=== PATIENT | female | born 1960 | race Caucasian/White ===

== ENCOUNTER 2022-07-11 19:02 | Observation (INO) | payer MEDICAID ==
[2022-07-11] MEDS ORDERED: APRESOLINE 20 MG/ML INJ IV ONE (19:38)
[2022-07-11] MEDS ORDERED: APRESOLINE 20 MG/ML INJ ONE (19:43)
--- NOTE | 2022-07-11 19:59 | ERPHSYRPT ---
- History of Present Illness Source: EMS Exam Limitations: clinical condition Patient Subjective Stated Complaint: Nsh Teacher from medic 1 stated "Her neighbor came over to check on her and found her on the floor naked. Her house was in very poor living condition. We gave her 4 mg narcan with no response, we tried an iv 2 times with no success. We did get a FSBS of 131. She is responsive to painful stimulus only. Her last known well or seen was sometime yesterday." Triage Nursing Assessment: Pt presented unresponsive with snoring respirations. PT would move legs and arms every now and then, pt would flinch slightly to painful stimulus. Pt skin was extremely dirty and pt has strong odor of urine and body odor. PT had no clothes on. Pt would not speak. Physician History: 62 yo WF found down in her home dishevelled for an undetermined time. Pt responds to pain only upon arrival and has a minimal gag reflex but maintaining an airway. She was markedly hypertensive upon arrival and presumed to have a possible CVA, so she was rushed to CT. Timing/Duration: other (Unknown) Character of Deficits: other (Pt responsive to pain only) Baseline/Normal Cognition: alert oriented x 3 Current Cognition: poor alertness Hx Tetanus, Diphtheria Vaccination/Date Given: (unknown) Hx Influenza Vaccination/Date Given: (unknown) Hx Pneumococcal Vaccination/Date Given: (unknown) Immunizations Up to Date: (unknown) Travel Risk - International Travel Have you traveled outside of the country in past 3 weeks: No - Coronavirus Screening Are you exhibiting any of the following symptoms?: No Close contact with a COVID-19 positive Pt in past 14-21 Days: No - Vaccine Status Have you recieved a Covid-19 vaccination: (unknown) - Review of Systems All Other Systems: Unable due to condition - Past Medical History Pertinent Past Medical History: (unknown) - Past Surgical History Past Surgical History: (unknown) - Social History Smoking Status: Never smoker Exposure to second hand smoke: (unknown) Patient Lives Alone: Yes - Nursing Vital Signs Nursing Vital Signs: Initial Vital Signs Temperature 98.1 F 07/11/22 19:02 Pulse Rate 65 07/11/22 19:02 Respiratory Rate 18 07/11/22 19:02 Blood Pressure 281/119 07/11/22 19:02 O2 Sat by Pulse Oximetry 98 07/11/22 19:02 Pain Scale Pain Intensity 0 Markedly hypertensive - [place] Coma Scale Best Eye Response ([place]): (2) open to pain Best Verbal Response ([place]): (1) no verbal response Best Motor Response ([place]): (4) withdraws to pain [place] Total: 7 - Physical Exam General Appearance: severe distress Eye Exam: bilateral eye: normal inspection, PERRL Ears, Nose, Throat Exam: dry mucous membranes Neck Exam: normal inspection Respiratory: normal breath sounds, lungs clear, airway intact Cardiovascular: regular rate/rhythm, capillary refill <2 sec, No murmur Gastrointestinal: soft, normal bowel sounds Back Exam: normal inspection, normal range of motion Extremity Exam: normal inspection, pelvis stable Peripheral Pulses: carotid (R): 2+, carotid (L): 2+ 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 Exam: PERRL, No facial asymmetry, No facial droop DTR: bicep (R): 2+, bicep (L): 2+ Skin Exam: warm, dry SpO2 Interpretation: normal SpO2: 98 O2 Delivery: Room Air - Course Nursing assessment & vital signs reviewed: Yes EKG Interpreted by Me: RATE (NSR/Rate 82/Prolonged QTc/LVH/Possible old inferior CT/Poor R wave progression) - CT Exams Head CT Interpretation: Discussed w/radiologist (Large intraparynchymal bleed read per ER physician before discussion w telerad/report), Tele-radiologist Report Ordered Tests: Active Orders 24 hr Category Date Time Status EKG-ER Only STAT Care 07/11/22 19:08 Completed HEAD WITHOUT CONTRAST [CT] Stat Exams 07/11/22 19:04 Completed CULTURE,URINE Stat Lab 07/11/22 19:49 Received UA W/RFX UR CULTURE Stat Lab 07/11/22 19:49 Completed Urine Triage Profile Stat Lab 07/11/22 19:49 Completed Medication Summary Generic Name Dose Route Start Last Admin Trade Name Freq PRN Reason Stop Dose Admin Sodium Chloride 1,000 mls @ 100 mls/hr 07/11/22 20:15 07/11/22 20:13 Sodium Chloride 0.9% 1000 Ml IV 08/10/22 20:14 100 mls/hr .Q10H AMY Administration Morphine Sulfate 2 mg 07/11/22 21:49 07/11/22 23:40 Morphine Sulfate 2 Mg/Ml Inj IV 07/16/22 21:48 2 mg Q2H PRN PRN Administration PAIN Discontinued Medications Generic Name Dose Route Start Last Admin Trade Name [place] PRN Reason Stop Dose Admin Hydralazine HCl 20 mg 07/11/22 19:38 07/11/22 19:44 Hydralazine Hcl 20 Mg/Ml Vial IV 07/11/22 19:39 20 mg STAT ONE Administration Hydralazine HCl Confirm 07/11/22 19:43 Hydralazine Hcl 20 Mg/Ml Vial Administered 07/11/22 19:44 Dose 20 mg .ROUTE .STK-MED ONE Lab/Rad Data: Laboratory Results 07/11/22 07/11/22 07/11/22 Range/Units 20:08 19:49 19:49 Urine Color Yellow (Yellow) Urine Appearance Cloudy A (Clear) Urine pH 5.5 (4.6-8.0) Ur Specific [place] 1.020 (1.005-1.030) Urine Protein >=1000 A (Negative) Urine Glucose (UA) Negative (Negative) mg/dL Urine Ketones 15 A (Negative) Urine Blood Moderate A (Negative) Urine Nitrite Negative (Negative) Urine Bilirubin Negative (Negative) Urine Urobilinogen 1.0 A (0.2) mg/dL Ur Leukocyte Esterase Trace A (Negative) U Hyaline Cast (Auto) None Seen (0-2) /LPF Urine Microscopic RBC 0-2 (0-5) /HPF Urine Microscopic WBC 3-5 (0-5) /HPF Ur Epithelial Cells Few (None Seen) /HPF Amorphous Crystals Moderate A (None Seen) /HPF Urine Bacteria Few A (None Seen) /HPF Urine Culture Reflexed ORDERED SEPARATELY (NO) Urine Opiates Level NEGATIVE (NEGATIVE) Ur Methadone NEGATIVE (NEGATIVE) Urine Barbiturates NEGATIVE (NEGATIVE) Ur Phencyclidine (PCP) NEGATIVE (NEGATIVE) Urine Amphetamine POSITIVE (NEGATIVE) U Benzodiazepine Level NEGATIVE (NEGATIVE) Urine Cocaine NEGATIVE (NEGATIVE) Urine Marijuana (THC) NEGATIVE (NEGATIVE) Influenza Type A Ag NEGATIVE (NEGATIVE) Influenza Type B Ag NEGATIVE (NEGATIVE) RSV (PCR) NEGATIVE (NEGATIVE) SARS-CoV-2 (PCR) NEGATIVE (NEGATIVE) - Progress Progress: unchanged Progress Note: 07/11/22 19:[address] Peterson Spoke w pt's only relative, sister, and related that pt marguerite wo intubation and neurosurgical treatment. Sister states that pt does not want any treatment and just wants nature to take its course. Sister repeated wishes to Gurvinder Pedersen RN. 07/11/22 21:08 Pt admitted for comfort measures only w expected demise due to large intraparynchymal brain bleed. GCS 7 upon admit. 07/11/22 21:11 Discussed with : Other Counseled pt/family regarding: diagnosis, rad results Medical Desision Making - Independent Historian Additional History obtained from: Nsh Teacher/EMT (Sister per phone) - Discussion of managment Care discussed with:: hospitalist Agreed on:: Treatment plan, decision to admit Will see patient: in hospital - Social Determinants of Health Limited access to: transportation - Diagnostic Testing Diagnostic test were ordered, analyzed, and reviewed by me: Yes Radiological Interpretation: Interpreted by me, Teleradiologist Report - Risk of complications The pt has a high risk of morbidity or mortality based on: Decision regarding hospitilization or escalation of hosp level of care, Decision not to resucitate - Departure Departure Disposition: In-patient Admission Clinical Impression: Intraparenchymal hemorrhage of brain Condition: Poor Critical Care Time: Yes Critical Care Time(excluding separately billable procedures): Critical 30-74 mins
[2022-07-11] MEDS ORDERED: Sodium Chloride 0.9% 1000 ML 1,000 ML ONE (20:10)
[2022-07-11] MEDS: Sodium Chloride 0.9% 1000 ML 1,000 ML IV SCH (20:13)
--- NOTE | 2022-07-11 20:14 | XRAY ---
CLINICAL HISTORY:Altered LOC. COMPARISON:None; TECHNIQUES:Axial non-contrast CT scan of the brain was performed from the skull base to the high parietal region. CTDI mGy, DLP mGycm. FINDINGS: Several intracranial hyperdense areas with peripheral hypodense areas, located in the right side at occipital lobe, and thalamic area, and on the left side on parietal and occipital lobes. These are compatible with acute intracranial hematomas and perilesional edema, and they are associated with secondary intraventricular hemorrhage on lateral ventricles bilaterally (markedly on the right side), third and fourth ventricles. Associated hemorrhage in basal cisterns. Subfalx midline deviation to the left ([address] appearance of the posterior fossa structures namely the cerebellar hemispheres. Limited view of brainstem and cerebellar peduncles due to motion artifacts. The IACs are unremarkable. No definite calvarium fractures. Scanned paranasal sinuses are clear. Inclusion of dental roots of dental prostheses in right maxillary sinus. IMPRESSION: 1. Bilateral intracranial intraaxial hematomas. 2. Hemorrhage in ventricular system and basal cisterns. 3. Limited view of brainstem and cerebellar peduncles. 4. Subfalx midline deviation to the left (10 mm). 5. Inclusion of dental roots in right maxillary sinus. 6. Lack of CSF space arount the brain consistant with subfalcine herniation. ER was called at 07:07 PM [employer] and results were verbally communicated with Dr. Richards. Electronically Signed by: Karina Wild MD. (07/11/2022 19:02:48 [employer] TE[employer])
[2022-07-11 20:35] LABS: Barbiturate,Urine NEGATIVE (NEGATIVE); Benzodiazepine,Urine NEGATIVE (NEGATIVE); Cocaine,Urine NEGATIVE (NEGATIVE); Methadone,Urine NEGATIVE (NEGATIVE); Opiate,Urine NEGATIVE (NEGATIVE); PCP,Urine NEGATIVE (NEGATIVE); THC,Urine NEGATIVE (NEGATIVE)
[2022-07-11 20:39] LABS: Appearance Cloudy (Clear); Bacteria Few /HPF (None Seen); Bilirubin Negative (Negative); Blood Moderate (Negative); Epithelial Cells Few /HPF (None Seen); Glucose, Urine Negative (Negative); Hyaline Casts None Seen /LPF (0-2); Ketones 15 (Negative); Leukocyte Esterase Trace (Negative); Nitrite Negative (Negative); Ph 5.5 (4.6-8.0); Protein,Urine Dip >=1000 (Negative); RBC 0-2 /HPF (0-5)
[2022-07-11 20:40] LABS: ADD URINE CULTURE? ORDERED SEPARATELY (NO); Amourphous Crystal Moderate /HPF (None Seen)
[2022-07-11 20:51] LABS: INFLUENZA A NEGATIVE (NEGATIVE); INFLUENZA B NEGATIVE (NEGATIVE); RESPIRATORY SYNCTIAL VIRUS NEGATIVE (NEGATIVE); SARS-CoV-2 Xpert Express NEGATIVE (NEGATIVE)
[2022-07-11 20:57] LABS: Amphetamine,Urine POSITIVE (NEGATIVE)
--- NOTE | 2022-07-11 21:55 | PCM.HP ---
History of Present Illness - Chief Complaint Chief Complaint: Intraparynchymal Brain Bleed Date: 07/11/22 History of Present Illness: 62 yo wf with no clear past medical hx presents with large ICH. Pt was markedly hypertensive on admit. Given hydralazine. Unable to protect airway--> MPOA called and stated to not intubate. Made DNAR and comfort care. I spoke to the MPOA. She knows the gravity of her situation and stated patient would not want any care. Pt UTOX + for amphetamines. Sister did not know she was currently using but stated she had used in past. - Review of Systems All Other Systems: Unable due to condition - Past Medical History Past Medical History: No (unknown) - Past Surgical History Past Surgical History: (unknown) - Social History Smoking Status: Never smoker Exposure to second hand smoke: (unknown) - Physical Exam Vital Signs: Vital Signs - 24 hr Temp Pulse Resp BP Pulse Ox 07/11/22 21:12 98 07/11/22 20:02 94 H 24 203/116 100 07/11/22 19:02 98.1 F 65 18 281/119 98 General Appearance: no apparent distress Neurologic Exam: other (comatose, withdraws to pain) Eye Exam: other (pupils 2 mm/ NR) Neck Exam: normal inspection Respiratory Exam: normal breath sounds Cardiovascular Exam: regular rate/rhythm Gastrointestinal/Abdomen Exam: soft, normal bowel sounds Extremity Exam: normal inspection, pedal edema Skin Exam: normal color Results - Labs Lab/Micro Results: Lab Results-Last 24 Hours 07/11/22 07/11/22 07/11/22 Range/Units 19:49 19:49 20:08 Urine Color Yellow (Yellow) Urine Appearance Cloudy A (Clear) Urine pH 5.5 (4.6-8.0) Ur Specific [place] 1.020 (1.005-1.030) Urine Protein >=1000 A (Negative) Urine Glucose (UA) Negative (Negative) mg/dL Urine Ketones 15 A (Negative) Urine Blood Moderate A (Negative) Urine Nitrite Negative (Negative) Urine Bilirubin Negative (Negative) Urine Urobilinogen 1.0 A (0.2) mg/dL Ur Leukocyte Esterase Trace A (Negative) U Hyaline Cast (Auto) None Seen (0-2) /LPF Urine Microscopic RBC 0-2 (0-5) /HPF Urine Microscopic WBC 3-5 (0-5) /HPF Ur Epithelial Cells Few (None Seen) /HPF Amorphous Crystals Moderate A (None Seen) /HPF Urine Bacteria Few A (None Seen) /HPF Urine Culture Reflexed ORDERED SEPARATELY (NO) Urine Opiates Level NEGATIVE (NEGATIVE) Ur Methadone NEGATIVE (NEGATIVE) Urine Barbiturates NEGATIVE (NEGATIVE) Ur Phencyclidine (PCP) NEGATIVE (NEGATIVE) Urine Amphetamine POSITIVE (NEGATIVE) U Benzodiazepine Level NEGATIVE (NEGATIVE) Urine Cocaine NEGATIVE (NEGATIVE) Urine Marijuana (THC) NEGATIVE (NEGATIVE) Influenza Type A Ag NEGATIVE (NEGATIVE) Influenza Type B Ag NEGATIVE (NEGATIVE) RSV (PCR) NEGATIVE (NEGATIVE) SARS-CoV-2 (PCR) NEGATIVE (NEGATIVE) - Radiology Impressions Radiology Exams & Impressions: Radiology Procedures Category Date Time Status HEAD WITHOUT CONTRAST [CT] Stat Exams 07/11/22 19:04 Completed Assessment/Plan (1) Intraparenchymal hemorrhage of brain Current Visit: Yes Status: Acute Assessment & Plan: A/P: ICH Subfalcine Herniation Hypertensive Emergency AMS Amphetamine + Catastrophic ICH with herniation. Comatose on exam. D/w Sister. She stated patient would not want additional care. She would want comfort care. Pt is DNAR. Continue morphine as needed for pain or air hunger. Mp Peterson MD entire encounter done via telemedicine Code(s): I61.9 - NONTRAUMATIC INTRACEREBRAL HEMORRHAGE, UNSPECIFIED Telemedicine Encounter - Telemedicine Encounter Telemedicine Encounter: The entirety of this encounter was performed via Telemedicine"
[2022-07-11] MEDS: MORPHINE SULFATE 2 MG INJ IV PRN (23:40)
[2022-07-12 04:35] VITALS: PULSE 70
[2022-07-12] MEDS: MORPHINE SULFATE 2 MG INJ IV PRN ×2 (06:29→11:18)
[2022-07-12] MEDS: Sodium Chloride 0.9% 1000 ML 1,000 ML IV SCH (07:48)
[2022-07-12 07:58] VITALS: BP 238/113; O2SAT 95
--- NOTE | 2022-07-12 08:59 | PCM.NOTE ---
Date and Time: 07/12/22 0854 Subjective Assessment: Patient is unresponsive. Patient is on comfort measures. Patient's sister who lives in [place] has confirmed with patient comfort measures. - Review of Systems All Other Systems: Unable due to condition Objective Exam General Appearance: moderate distress Neurologic Exam: other (unresponsive), No motor deficits Skin Exam: normal color, warm, dry Eye Exam: PERRL, EOMI Ears, Nose, Throat Exam: normal ENT inspection, pharynx normal, moist mucous membranes Neck Exam: normal inspection, non-tender, supple, full range of motion Respiratory Exam: normal breath sounds, lungs clear, No respiratory distress Cardiovascular Exam: regular rate/rhythm, normal heart sounds Gastrointestinal/Abdomen Exam: soft, No tenderness Extremity Exam: normal inspection Back Exam: normal inspection, No CVA tenderness, No vertebral tenderness Pelvic Exam: deferred Rectal Exam: deferred OBJECTIVE DATA Vital Signs: Vital Signs - 24 hr Temp Pulse Resp BP Pulse Ox 07/12/22 07:57 98.6 F 70 16 238/113 95 07/12/22 04:00 101.5 F 70 24 246/116 98 07/12/22 02:53 98 07/11/22 23:52 80 22 07/11/22 22:00 97.6 F 93 H 19 212/110 96 07/11/22 20:02 94 H 24 203/116 100 07/11/22 19:02 98.1 F 65 18 281/119 98 Pain Assessment - Last Documented Pain Intensity 0 Pain Scale Used 0-10 Pain Scale Intake and Output: Intake & Output 07/09/22 07/10/22 07/11/22 07/12/22 11:59 11:59 11:59 11:59 Weight 71.19 kg Lab Results: Lab Results-Last 24 Hours 07/11/22 07/11/22 07/11/22 Range/Units 19:49 19:49 20:08 Urine Color Yellow (Yellow) Urine Appearance Cloudy A (Clear) Urine pH 5.5 (4.6-8.0) Ur Specific [place] 1.020 (1.005-1.030) Urine Protein >=1000 A (Negative) Urine Glucose (UA) Negative (Negative) mg/dL Urine Ketones 15 A (Negative) Urine Blood Moderate A (Negative) Urine Nitrite Negative (Negative) Urine Bilirubin Negative (Negative) Urine Urobilinogen 1.0 A (0.2) mg/dL Ur Leukocyte Esterase Trace A (Negative) U Hyaline Cast (Auto) None Seen (0-2) /LPF Urine Microscopic RBC 0-2 (0-5) /HPF Urine Microscopic WBC 3-5 (0-5) /HPF Ur Epithelial Cells Few (None Seen) /HPF Amorphous Crystals Moderate A (None Seen) /HPF Urine Bacteria Few A (None Seen) /HPF Urine Culture Reflexed ORDERED SEPARATELY (NO) Urine Opiates Level NEGATIVE (NEGATIVE) Ur Methadone NEGATIVE (NEGATIVE) Urine Barbiturates NEGATIVE (NEGATIVE) Ur Phencyclidine (PCP) NEGATIVE (NEGATIVE) Urine Amphetamine POSITIVE (NEGATIVE) U Benzodiazepine Level NEGATIVE (NEGATIVE) Urine Cocaine NEGATIVE (NEGATIVE) Urine Marijuana (THC) NEGATIVE (NEGATIVE) Influenza Type A Ag NEGATIVE (NEGATIVE) Influenza Type B Ag NEGATIVE (NEGATIVE) RSV (PCR) NEGATIVE (NEGATIVE) SARS-CoV-2 (PCR) NEGATIVE (NEGATIVE) Radiology Exams: Radiology Procedures Category Date Time Status HEAD WITHOUT CONTRAST [CT] Stat Exams 07/11/22 19:[address]/HEAD WITHOUT CONTRAST CLINICAL HISTORY:Altered LOC. COMPARISON:None; TECHNIQUES:Axial non-contrast CT scan of the brain was performed from the skull base to the high parietal region. CTDI mGy, DLP mGycm. FINDINGS: Several intracranial hyperdense areas with peripheral hypodense areas, located in the right side at occipital lobe, and thalamic area, and on the left side on parietal and occipital lobes. These are compatible with acute intracranial hematomas and perilesional edema, and they are associated with secondary intraventricular hemorrhage on lateral ventricles bilaterally (markedly on the right side), third and fourth ventricles. Associated hemorrhage in basal cisterns. Subfalx midline deviation to the left ([address] appearance of the posterior fossa structures namely the cerebellar hemispheres. Limited view of brainstem and cerebellar peduncles due to motion artifacts. The IACs are unremarkable. No definite calvarium fractures. Scanned paranasal sinuses are clear. Inclusion of dental roots of dental prostheses in right maxillary sinus. IMPRESSION: 1. Bilateral intracranial intraaxial hematomas. 2. Hemorrhage in ventricular system and basal cisterns. 3. Limited view of brainstem and cerebellar peduncles. 4. Subfalx midline deviation to the left (10 mm). 5. Inclusion of dental roots in right maxillary sinus. 6. Lack of CSF space arount the brain consistant with subfalcine herniation. Assessment/Plan (1) Intraparenchymal hemorrhage of brain Current Visit: Yes Status: Acute Assessment & Plan: Chief Complaint Diagnosis Intraparynchymal Brain Bleed Admission Date Date 07/11/22 Vital Signs (Last 24 hours) Temp Pulse Resp BP Pulse Ox 07/12/22 07:57 98.6 F 70 16 238/113 95 07/12/22 04:00 101.5 F 70 24 246/116 98 07/12/22 02:53 98 07/11/22 23:52 80 22 07/11/22 22:00 97.6 F 93 H 19 212/110 96 07/11/22 20:02 94 H 24 203/116 100 07/11/22 19:02 98.1 F 65 18 281/119 98 Home Medications Medication Instructions Recorded Confirmed Last Taken Type No Reportable Medications [No 07/12/22 07/12/22 Unknown History Reported Medications] Current Medications Generic Name Dose Route Start Last Admin Trade Name Freq PRN Reason Stop Dose Admin Morphine Sulfate 2 mg 07/11/22 21:49 07/12/22 06:29 Morphine Sulfate 2 Mg/Ml Inj IV 07/16/22 21:48 2 mg Q2H PRN PRN Administration PAIN Discontinued Medications Generic Name Dose Route Start Last Admin Trade Name Freq PRN Reason Stop Dose Admin Hydralazine HCl 20 mg 07/11/22 19:38 07/11/22 19:44 Hydralazine Hcl 20 Mg/Ml Vial IV 07/11/22 19:39 20 mg STAT ONE Administration Hydralazine HCl Confirm 07/11/22 19:43 Hydralazine Hcl 20 Mg/Ml Vial Administered 07/11/22 19:44 Dose 20 mg .ROUTE .STK-MED ONE Sodium Chloride 1,000 mls @ 100 mls/hr 07/11/22 20:15 07/12/22 07:48 Sodium Chloride 0.9% 1000 Ml IV 08/10/22 20:14 Not Given .Q10H AMY Sodium Chloride Confirm 07/11/22 20:10 Sodium Chloride 0.9% 1000 Ml Administered 07/11/22 20:11 Dose 1,000 mls @ ud .ROUTE .STK-MED ONE Intake & Output (Last 24 hours) 07/09/22 07/10/22 07/11/22 07/12/22 11:59 11:59 11:59 11:59 Weight 71.19 kg Microbiology Results (Last 24 hours) 07/11/22 19:49 Catherized Urine Culture - Pending Laboratory Results (Last 24 hours) 07/11/22 07/11/22 07/11/22 20:08 19:49 19:49 Urine Color Yellow Urine Appearance Cloudy A Urine pH 5.5 Ur Specific [place] 1.020 Urine Protein >=1000 A Urine Glucose (UA) Negative Urine Ketones 15 A Urine Blood Moderate A Urine Nitrite Negative Urine Bilirubin Negative Urine Urobilinogen 1.0 A Ur Leukocyte Esterase Trace A U Hyaline Cast (Auto) None Seen Urine Microscopic RBC 0-2 Urine Microscopic WBC 3-5 Ur Epithelial Cells Few Amorphous Crystals Moderate A Urine Bacteria Few A Urine Culture Reflexed ORDERED SEPARATELY Urine Opiates Level NEGATIVE Ur Methadone NEGATIVE Urine Barbiturates NEGATIVE Ur Phencyclidine (PCP) NEGATIVE Urine Amphetamine POSITIVE U Benzodiazepine Level NEGATIVE Urine Cocaine NEGATIVE Urine Marijuana (THC) NEGATIVE Influenza Type A Ag NEGATIVE Influenza Type B Ag NEGATIVE RSV (PCR) NEGATIVE SARS-CoV-2 (PCR) NEGATIVE Orders (Last 24 hours) Category Date Time Status Admit as Inpatient ROUTINE Care 07/11/22 20:00 Active Code Status Order ROUTINE Care 07/11/22 20:00 Active EKG-ER Only STAT Care 07/11/22 19:08 Completed IV Care Q6H Care 07/11/22 20:00 Completed Literacy Tutor/Discharge Plan ROUTINE Cons 07/12/22 01:25 Active HEAD WITHOUT CONTRAST [CT] Stat Exams 07/11/22 19:04 Completed COVID/FLU/RSV Panel Stat Lab 07/11/22 20:08 Completed CULTURE,URINE Stat Lab 07/11/22 19:49 Received UA W/RFX UR CULTURE Stat Lab 07/11/22 19:49 Completed Urine Triage Profile Stat Lab 07/11/22 19:49 Completed HydrALAzine HCL 20 MG INJ [Apresoline 20 mg/ml Inj Med 07/11/22 19:43 Discontinued *] 20 mg .ROUTE .STK-MED ONE HydrALAzine HCL 20 MG INJ [Apresoline 20 mg/ml Inj Med 07/11/22 19:38 Discontinued *] 20 mg IV STAT ONE Morphine Sulfate 2 mg Inj Med 07/11/22 21:49 Active 2 mg IV Q2H PRN PRN NaCl 0.9% 1000 ml [Sodium Chloride 0.9% 1000 ML] 1,000 Med 07/11/22 20:10 Discontinued ml .ROUTE UD NaCl 0.9% 1000 ml [Sodium Chloride 0.9% 1000 ML] 1,000 Med 07/11/22 20:15 Discontinued ml IV 100 mls/hr ST Screen per Nursing Assess ONCE ST 07/12/22 01:[address]/HEAD WITHOUT CONTRAST CLINICAL HISTORY:Altered LOC. COMPARISON:None; TECHNIQUES:Axial non-contrast CT scan of the brain was performed from the skull base to the high parietal region. CTDI mGy, DLP mGycm. FINDINGS: Several intracranial hyperdense areas with peripheral hypodense areas, located in the right side at occipital lobe, and thalamic area, and on the left side on parietal and occipital lobes. These are compatible with acute intracranial hematomas and perilesional edema, and they are associated with secondary intraventricular hemorrhage on lateral ventricles bilaterally (markedly on the right side), third and fourth ventricles. Associated hemorrhage in basal cisterns. Subfalx midline deviation to the left ([address] appearance of the posterior fossa structures namely the cerebellar hemispheres. Limited view of brainstem and cerebellar peduncles due to motion artifacts. The IACs are unremarkable. No definite calvarium fractures. Scanned paranasal sinuses are clear. Inclusion of dental roots of dental prostheses in right maxillary sinus. IMPRESSION: 1. Bilateral intracranial intraaxial hematomas. 2. Hemorrhage in ventricular system and basal cisterns. 3. Limited view of brainstem and cerebellar peduncles. 4. Subfalx midline deviation to the left (10 mm). 5. Inclusion of dental roots in right maxillary sinus. 6. Lack of CSF space arount the brain consistant with subfalcine herniation. Patient is unresponsive. Patient is on comfort measures. Patient's sister who lives in [place] has confirmed with patient comfort measures. Code(s): I61.9 - NONTRAUMATIC INTRACEREBRAL HEMORRHAGE, UNSPECIFIED
[2022-07-12] MEDS ORDERED: Morphine PCA 1 MG/ML IV PRN (14:04)
[2022-07-12] MEDS ORDERED: Ativan 20 MG/10 ML MDV*** 40 MG in D5w 100ML Mini Bag 100 ML 80 ML IV PRN (15:00)
--- NOTE | 2022-07-13 12:52 | PCM.DS ---
Discharge Summary Date of Admission: 07/11/22 21:14 Admitting Physician: JULIAN DANIELS MD Primary Care Provider: NO FAMILY DOCTOR Allergies Allergies No Known Drug Allergies Allergy (Unverified 07/12/22 12:06) Hospital Summary - Hospital Course Hospital Course: Patient is transferred to hospice care - Vitals & Intake/Output Vital Signs: Vital Signs Temperature 98.6 F 07/12/22 07:57 Pulse Rate 70 07/12/22 07:57 Respiratory Rate 16 07/12/22 07:57 Blood Pressure 238/113 07/12/22 07:57 O2 Sat by Pulse Oximetry 95 07/12/22 07:57 Intake & Output: Intake & Output 07/11/22 07/12/22 07/13/22 07/14/22 11:59 11:59 11:59 11:59 Intake Total 0 0 Balance 0 0 Weight 71.19 kg - Lab Micro Results-Entire Visit: Microbiology 07/11/22 19:49 Urine Culture - Final Catherized <10K NORMAL SKIN TOBIN PROBABLE SKIN CONTAMINANT - Radiology Exams Ordered Rad Exams-Entire Visit: Radiology Procedures Category Date Time Status HEAD WITHOUT CONTRAST [CT] Stat Exams 07/11/22 19:04 Completed - Procedures and Test Procedures and Tests throughout Hospitalization: Therapy Orders & Screens 07/12/22 01:25 ST Screen per Nursing Assess ONCE Comment: Protocol Order Physician Instructions: Greater than [address] Admission Screening Reason For Exam: Triggered on Admission Diagnosis: Intraparynchymal Brain Bleed CVA/Dyshpagia/Aphasia: Yes Cognitive Deficits: Yes Dehydration/Nutrition Deficit: No Oral-Motor Difficulties: No Pneumonia: No Intermediate Resident: No Total Points: 8 Discharge Exam Neurologic Exam: other (unresponsive) Final Diagnosis/Problem List - Final Discharge Diagnosis/Problem (1) Intraparenchymal hemorrhage of brain Status: Acute Assessment & Plan: Patient is unresponsive. Transferred to [facility] Code(s): I61.9 - NONTRAUMATIC INTRACEREBRAL HEMORRHAGE, UNSPECIFIED - Discharge Discharge Date: 07/12/22 Disposition: Hospice @ [facility] Condition: Poor Prescriptions: No Action No Reportable Medications [No Reported Medications] Follow up with: DOCTOR,NO FAMILY [Primary Care Provider] -
== END 2022-07-12 15:00 | disposition hospice, home (50) ==
LOC: ED 19:02 → INTOOBSV 21:14 → MED SURG 21:14
PROVIDERS: ADMIT Internal Medicine Critical Care Medicine; ATTEND General Practice
DX: I61.9 Nontraumatic intracerebral hemorrhage, unspecified (principal); I10 Essential (primary) hypertension; F15.90 Other stimulant use, unspecified, uncomplicated
CPT/HCPCS: 0241U; 70450; 80307; 81001; 87086; 93005; 96374; 99284; 99291; 93268; J0360; J2060; J2270; G0378

== ENCOUNTER 2022-07-12 14:45 | Inpatient (IN) | payer OTHER ==
[2022-07-12] MEDS ORDERED: Morphine PCA 1 MG/ML IV PRN (15:07)
[2022-07-12] MEDS ORDERED: Ativan 20 MG/10 ML MDV*** 40 MG in D5w 100ML Mini Bag 100 ML 80 ML IV PRN (15:07)
[2022-07-12] MEDS ORDERED: MORPHINE SULFATE 2 MG INJ IV PRN (15:07)
[2022-07-12] MEDS ORDERED: PERIDEX PO SCH (15:15)
[2022-07-12] MEDS: PERIDEX PO SCH ×2 (16:00→19:18)
[2022-07-13] MEDS: PERIDEX PO SCH ×4 (04:00→11:28)
[2022-07-13 07:07] VITALS: BP 112/60; PULSE 100; O2SAT 83
--- NOTE | 2022-07-13 12:50 | PCM.SSS ---
History of Present Illness - Chief Complaint Chief Complaint: END OF LIFE CARE History of Present Illness: is a 62 year old female admitted with intracranial hemorrhage under General inpatient care under [facility] - Review of Systems Constitutional: No Fever, No Chills Eyes: No Symptoms Ears, Nose, & Throat: No Symptoms Respiratory: No Cough, No Short Of Breath Cardiac: No Chest Pain, No Edema, No Syncope Abdominal/Gastrointestinal: No Abdominal Pain, No Nausea, No Vomiting, No Diarrhea Genitourinary Symptoms: No Dysuria Musculoskeletal: No Back Pain, No Neck Pain Skin: No Rash Neurological: No Dizziness, No Focal Weakness, No Sensory Changes Psychological: No Symptoms Endocrine: No Symptoms Hematologic/Lymphatic: No Symptoms Immunological/Allergic: No Symptoms All Other Systems: Unable due to condition Medications & Allergies Home Medications: Home Medication List No Reportable Medications [No Reported Medications] 07/12/22 [History Confirmed 07/12/22] Allergies/Adverse Reactions: Allergies Allergy/AdvReac Type Severity Reaction Status Date / Time No Known Drug Allergies Allergy Unverified 07/12/22 12:06 - Past Medical History Past Medical History: (unknown) - Past Surgical History Past Surgical History: (unknown) - Social History Smoking Status: Former smoker Exposure to second hand smoke: (unknown) - Physical Exam Vital Signs: Vital Signs - 24 hr Temp Pulse Resp BP Pulse Ox 07/13/22 07:06 98.6 F 100 H 14 112/60 83 L 07/12/22 20:00 98.0 F 75 17 218/104 Neurologic Exam: other (unresponsive) Additional Findings: 07/13/22 12:48 comfort measures Hospital Summary - Hospital Course Hospital Course: Chief Complaint Diagnosis END OF LIFE CARE Allergies Allergy/AdvReac Type Severity Reaction Status Date / Time No Known Drug Allergies Allergy Unverified 07/12/22 12:06 Vital Signs (Last 24 hours) Temp Pulse Resp BP Pulse Ox 07/13/22 07:06 98.6 F 100 H 14 112/60 83 L 07/12/22 20:00 98.0 F 75 17 218/104 Current Medications Generic Name Dose Route Start Last Admin Trade Name Freq PRN Reason Stop Dose Admin Chlorhexidine Gluconate 15 ml 07/12/22 16:00 07/13/22 11:28 Chlorhexidine Gluconate 15 Ml Mouthwash PO 08/11/22 15:59 Not Given Q4H AMY Lorazepam 40 mg/ Dextrose 100 mls @ 2.5 mls/hr 07/12/22 15:07 IV 08/11/22 14:59 .Q24H PRN SEDATION FOR VENT Protocol 1 MG/HR Morphine Sulfate 2 mg 07/12/22 15:07 Morphine Sulfate 2 Mg/Ml Inj IV 07/16/22 21:48 Q2H PRN PRN PAIN Morphine Sulfate 30 mg 07/12/22 15:07 07/13/22 04:53 Morphine Sulfate * 1 Mg/Ml Syr IV 07/17/22 14:03 30 mg UD PRN Administration PAIN Discontinued Medications Generic Name Dose Route Start Last Admin Trade Name Freq PRN Reason Stop Dose Admin Chlorhexidine Gluconate 15 ml 07/12/22 15:15 07/12/22 15:22 Chlorhexidine Gluconate 15 Ml Mouthwash PO 08/11/22 15:14 Not Given Q2H AMY Intake & Output (Last 24 hours) 07/11/22 07/12/22 07/13/22 07/14/22 11:59 11:59 11:59 11:59 Intake Total 15 Output Total 700 Balance -685 Weight 71 kg Orders (Last 24 hours) Category Date Time Status Admit as Inpatient ROUTINE Care 07/12/22 15:00 Active Code Status Order ROUTINE Care 07/12/22 15:07 Active Oral Care Q2H Care 07/12/22 16:00 Active Healthcare Administrator/Discharge Plan ROUTINE Cons 07/12/22 15:07 Active NPO Diet 07/12/22 15:07 Active Discharge Routine Discharge 07/13/22 Ordered Chlorhexidine Gluconate [Peridex] Med 07/12/22 15:15 Discontinued 15 ml PO Q2H Chlorhexidine Gluconate [Peridex] Med 07/12/22 16:00 Active 15 ml PO Q4H D5w 100 ml [D5w 100ML Mini Bag 100 ML] 80 ml Med 07/12/22 15:07 Active Lorazepam 20 mg/10 ml Mdv [Ativan 20 MG/10 ML MDV ] 40 mg IV 1 mg/hr Morphine Sulfate * [Morphine BLENDER OPERATOR 1 MG/ML] Med 07/12/22 15:07 Active 30 mg IV UD PRN Morphine Sulfate 2 mg Inj Med 07/12/22 15:07 Active 2 mg IV Q2H PRN PRN Patient Care Notes (Last 24 hours) 07/13/22 09:48 Nursing Note by Chantal Larios dc'd 55cc wasted with ezio vincent as witness. Initialized on 07/13/22 09:48 - END OF NOTE 07/13/22 09:43 (created 07/13/22 09:49) Nursing Note by Chantal Larios pt . no respirations or heart sounds noted. verified by home housekeeper kia. Initialized on 07/13/22 09:49 - END OF NOTE 07/12/22 18:02 Nursing Note by Nayeli Yu BLENDER OPERATOR TOTAL DELIVERED 6.98 -SHIFT TOTALS CLEARED, UNABLE TO CHART ON MAY. Initialized on 07/12/22 18:02 - END OF NOTE 07/12/22 13:45 (created 07/12/22 15:55) Nursing Note by Indiana Bridges If patient should pass away over the weekend, Rand with [facility] left her direct cell phone number to call her at [phone]. Initialized on 07/12/22 15:55 - END OF NOTE Patient at 0943 hrs, body released to home - Vitals & Intake/Output Vital Signs: Vital Signs Temperature 98.6 F 07/13/22 07:06 Pulse Rate 100 H 07/13/22 07:06 Respiratory Rate 14 07/13/22 07:06 Blood Pressure 112/60 07/13/22 07:06 O2 Sat by Pulse Oximetry 83 L 07/13/22 07:06 Intake & Output: Intake & Output 07/11/22 07/12/22 07/13/22 07/14/22 11:59 11:59 11:59 11:59 Intake Total 15 Output Total 700 Balance -685 Weight 71 kg - Discharge Disposition: Condition: Prescriptions: No Action No Reportable Medications [No Reported Medications] Follow up with: DOCTOR,NO FAMILY [Primary Care Provider] -
== END 2022-07-13 12:50 | disposition expired | DRG 951 ==
LOC: UNDOADMIN 15:00 → MED SURG 15:00 → UNDODISIN 07-13 12:50
PROVIDERS: ADMIT General Practice; ATTEND General Practice
DX: Z51.5 Encounter for palliative care (principal); I61.9 Nontraumatic intracerebral hemorrhage, unspecified
CPT/HCPCS: J2270; A9270-GY